=== PATIENT | male | born 1950 | race Caucasian/White ===

== ENCOUNTER 2018-02-06 12:32 | Outpatient (CLI) | payer MEDICARE ==
[~2018-02-06] VITALS: Ht 175.3 cm; Wt 71.2 kg
[2018-02-06 13:10] LABS: TOTAL HEMOGLOBIN 14.3 G/dl (14.0-18.0)
[2018-02-06] MEDS ORDERED: albuterol 2.5 MG/3 ML nebule NEB ONE (13:20)
== END 2018-02-06 23:59 | disposition home or self-care (01) ==
LOC: RT 12:32
PROVIDERS: ATTEND Internal Medicine Pulmonary Disease
DX: J84.10 Pulmonary fibrosis, unspecified (principal); R06.09 Other forms of dyspnea; Z79.899 Other long term (current) drug therapy
CPT/HCPCS: 85018; 94060; 94640; 94727; 94729; 94760; J7030